=== PATIENT | female | born 1980 | race Caucasian/White ===

== ENCOUNTER 2017-05-04 17:00 | Emergency (ER) | payer OTHER ==
[~2017-05-04] VITALS: Ht 182.9 cm; Wt 83.0 kg
[2017-05-04 17:21] VITALS: BP 139/81; PULSE 91; RESP 16; TEMP 98.3; O2SAT 100
[2017-05-04] MEDS ORDERED: TRI-TAB (17:58)
[2017-05-04] MEDS ORDERED: LIDOCAINE HCL 1% PF 30 ML VIAL INFIL ONE (18:00)
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
[2017-05-04] MEDS ORDERED: TETANUS/DIPHTHERIA TOXOID ADULT 0.5 ML VIAL IM ONE (19:00)
[2017-05-04] MEDS ORDERED: ACETAMINOPHEN/HYDROcodone 325 MG/5 MG TAB PO ONE (19:00)
[2017-05-04] MEDS ORDERED: HYDR-3516 PO (19:06)
== END 2017-05-04 19:57 | disposition home or self-care (01) ==
LOC: NEPD 17:00
DX: S82.892A Other fracture of left lower leg, initial encounter for closed fracture (principal); S81.012A Laceration without foreign body, left knee, initial encounter; S60.519A Abrasion of unspecified hand, initial encounter; Z23 Encounter for immunization; V29.88XA Motorcycle rider (driver) (passenger) injured in other specified transport accidents, initial encounter; Y92.410 Unspecified street and highway as the place of occurrence of the external cause; Z88.0 Allergy status to penicillin
CPT/HCPCS: 12001; 29515; 73564; 73590; 73610; 90471; 90714; 99283; E0113